=== PATIENT | male | born 1930 | race Caucasian/White ===

== ENCOUNTER 2018-05-17 05:21 | Day surgery (SDC) | payer OTHER, MEDICARE ==
[~2018-05-17] VITALS: Ht 172.7 cm; Wt 86.2 kg
--- NOTE | ~2018-05-17 | O ---
[facility] [place] [address] OPERATIVE REPORT Name: PAXTON BARKER Room #: 150-1 [facility]#: [id number] Admission: 05/17/18 Attend Phys: Ismael Khanna MD Discharge: Date of : 34 Report #: [id number] THIS REPORT FOR: //name// CC: Sandro Khanna DATE OF SERVICE: 05/17/2018 SCABBLER: None. PREOPERATIVE DIAGNOSIS: Unilateral left lower lid entropion. POSTOPERATIVE DIAGNOSIS: Unilateral left lower lid entropion. OPERATION PERFORMED: Unilateral left lower lid entropion repair. ANESTHESIA: Local with IV sedation. COMPLICATIONS: None. INDICATIONS FOR PROCEDURE: This patient has unilateral lower lid entropion with chronic irritation and discharge. The current procedure is being undertaken in order to improve the patient's level of comfort and visual function. Informed consent was obtained to include but not limited to the loss of vision, bleeding, infection, scarring, failure to improve the problem and need for further surgery. DESCRIPTION OF OPERATION: The patient was taken to the operating room, where 2% Xylocaine with epinephrine mixed with equal parts of 0.75% Marcaine with Wydase was administered transcutaneously and transconjunctivally to the lower lid and lateral canthal area. The patient was then prepped and draped in the usual sterile fashion. A Anna clamp was used to clamp the lateral canthus, following which a sharp canthotomy and cantholysis were performed. Hemostasis was achieved with a monopolar cautery, as it was throughout the case. A tarsal strip was prepared laterally, removing the lash-bearing portion of the redundant lid margin and the redundant tarsal plate. A transconjunctival dissection was then undertaken just inferior to the lower border of the tarsal plate. The lower lid retractors were disinserted from the inferior border of the tarsal plate. The lower lid retractors were then advanced and reattached to the anterior surface of the tarsal plate with mattress 5-0 chromic sutures passed transconjunctivally and secured in the infraciliary margin. The tarsal strip was then secured laterally with 2 interrupted 5-0 Prolene sutures. The subcutaneous structures and the skin were then closed with multiple interrupted [address] [address] OPERATIVE REPORT Name: PAXTON BARKER Room #: 150-1 [facility]#: [id number] Admission: 05/17/18 Attend Phys: Ismael Khanna MD Discharge: Date of : 34 Report #: [id number] 6-0 plain gut sutures so the lateral canthal angle was sharply reformed. The wound was then cleaned and dressed with ophthalmic antibiotic ointment. The patient was then transported to the recovery area having tolerated the procedure well with no anesthetic or operative complications being noted. By: [id number] Ismael Khanna MD /shorty
[~2018-05-17 05:21] MED LIST: ASPIRIN81 M2 PO; CARVEDILOL3.125 MG PO; CENTRUM SILVER1 EAC4 PO; COREG6.25 MG PO; COZAAR 50 MG TA50 M1 PO; DYAZIDE 37.5-21 EACH PO; ELIQUIS2.5 MG PO; FUROSEMIDE 20 M20 M1 PO; LORTAB 5 MG/5001 TA1 PO; MOBIC7.5 M1 PO; SPIRONOLACTONE25 M1 PO; TYLENOL PM EX-1 EACH PO; VITAMIN D3 1,01 EACH PO; XANAX 0.25 MG0.25 MG PO; XANAX 0.5 MG0.5 MG PO; ZOCOR 20 MG TAB20 M1 PO; ZYLOPRIM300 MG PO
[2018-05-17 06:58] VITALS: BP 121/50
== END 2018-05-17 08:20 | disposition home or self-care (01) ==
LOC: OR 05:21 → TBA 05:21 → OR 08:20
DX: H02.005 Unspecified entropion of left lower eyelid (principal); I10 Essential (primary) hypertension; E78.00 Pure hypercholesterolemia, unspecified; M10.9 Gout, unspecified; Z95.810 Presence of automatic (implantable) cardiac defibrillator; Z96.653 Presence of artificial knee joint, bilateral; Z96.643 Presence of artificial hip joint, bilateral; Z96.611 Presence of right artificial shoulder joint; Z79.899 Other long term (current) drug therapy
CPT/HCPCS: 50010; 50101; 50386; 50398; 51636; 56527; 56531; 62110; 62850; 70005